=== PATIENT | female | born 1995 | race Caucasian/White ===

== ENCOUNTER → 2016-08-18 16:30 | Observation (INO) ==
--- NOTE | 2016-08-18 16:44 | OB/GYN Progress Note ---
Date of Encounter: 08/18/16 Time of Encounter: 16:41 - Assessment and Plan (1) 35 weeks gestation of Current Visit: Yes Status: Acute (2) Polyhydramnios affecting in third trimester Current Visit: Yes Status: Acute (3) Decreased movement during in third trimester, antepartum Current Visit: Yes Status: Acute Pt felt movement soon after placing on monitor for multiple movements, Reactive NST, Discharged to home, discussed when to return to triage or call provider. Pt and family verbalize understanding. Qualifiers: Fetus number: single or unspecified fetus Qualified Code(s): O36.8130 - Decreased movements, third trimester, not applicable or unspecified (4) NST (non-stress test) reactive Current Visit: Yes Status: Acute Baseline 135 Subjective - Subjective Interval history: Pt reports decreased movement today presents to triage for evaluation. Polyhydramnios RON 24 on last US this week and breech presentation. Pt states schedueld for C/S at [address] Mendoza. Denies contractions ,vaginal bleeding or leaking of fluid. No other complaints. Antepartum ROS: other (decreased movement ), no loss of fluid, no vaginal bleeding, no contractions Objective - Exam FHR: auscultation normal FHR comments: reactive NST baseline 135 Abdomen: Present: normal appearance, soft, gravid Uterus: Present: normal
== END | disposition home or self-care (01) ==
LOC: 1NENULAB

== ENCOUNTER → 2016-08-31 15:34 | Observation (INO) ==
[2016-08-31 13:59] LABS: Basophils % 0.3 %; Bilirubin,Urine Negative (Negative); Blood,Urine Negative (Negative); Clarity,Urine Turbid (Clear); Color,Urine Yellow (Yellow); Eosinophils # 0.2 K/mcL (0.0-0.6); Eosinophils % 1.4 %; Glucose,Urine (UA) Normal (Normal); Hemoglobin 12.8 g/dL (11.5-15.4); Ketones,Urine Negative (Negative); Leukocyte Esterase,Urine Large (Negative); Lymphocytes # 1.8 K/mcL (0.6-4.6); Lymphocytes % 14.4 %; Mean Corpuscular HGB Conc 33.7 g/dL (31.6-35.5); Mean Corpuscular Hemoglobin 29.6 pg (28.0-33.3); Mean Platelet Volume 11.6 fL (9.4-12.4); Monocytes % 7.8 %; Neutrophils # 9.1 K/mcL (1.6-8.9); Nitrite,Urine Negative (Negative); PH,Urine 6.5 pH Units (5.0-8.0); Platelet Count 229 K/mcL (140-400); Protein,Urine Trace mg/dL (Neg-Trace); Red Blood Count 4.32 M/mcL (3.82-4.97); Red Cell Distribution Width 13.5 % (11.5-14.5); Segmented Neutrophils % 73.1 %; Specific Gravity,Urine 1.021 (1.010-1.025); Urobilinogen,Urine Normal (Normal)
[2016-08-31 14:00] LABS: Bacteria,Urine Many per hpf (None-Few); RBC,Urine 0-3 per hpf (0-3); Squamous Epithelial Cell,Urine Many per lpf (None-Few); WBC,Urine TNTC per hpf (0-3)
[2016-08-31 14:06] LABS: Protein/Creatinine Ratio,Urine 0.19 mg/mg (0-0.20)
[2016-08-31 14:11] LABS: Alanine Aminotransferase 13 Units/L (0-55); Aspartate Amino Transferase 18 Units/L (5-34); BUN/Creatinine Ratio 15 (6-26); Blood Urea Nitrogen 9 mg/dL (7-20); Lactate Dehydrogenase 201 Units/L (159-327); Uric Acid 5.1 mg/dL (2.6-6.0); eGFR For African Americans > 60 (> 60); eGFR For Non-African Americans > 60 (> 60)
[2016-08-31 14:26] LABS: Hyaline Casts,Urine None Seen per lpf (None-Few)
--- NOTE | 2016-08-31 15:47 | OB/GYN Progress Note ---
Date of Encounter: 08/31/16 Time of Encounter: 15:44 - Assessment and Plan (1) 37 weeks gestation of Status: Acute (2) Cramping affecting , antepartum Status: Acute No cervical change on serial exams. Nitrazine negative. Discharged to home with labor precautions. Subjective - Subjective Interval history: Pt to triage for increased cramping and suspect ROM. Pt states her cramping started last night about 0300 and has slowly increased. Also noted an increase in vaginal discharge (thin white). Reports good movement, denies vaginal bleeding. Pt states she is also having a hard time sleeping due to carpal tunnel. Also complains of headache, denies visual changes or other abdominal pain Antepartum ROS: loss of fluid, movement normal, contractions, no vaginal bleeding Objective - Vital Signs Vital Signs: Intake and Output 08/30/16 08/31/16 08/31/16 23:59 07:59 15:59 Other: Weight 84 kg Patient Weight 08/31/16 23:59 Weight 84 kg - Exam FHR: auscultation normal FHR comments: Baseline 135 Auscultation: bilateral: normal Abdomen: Present: normal appearance, soft, gravid Uterus: Present: normal Cervical dilation: Fingertip/long - Labs Labs: Abnormal lab results WBC 12.5 K/mcL (4.3-11.1) H 08/31/16 13:43 Neutrophils # 9.1 K/mcL (1.6-8.9) H 08/31/16 13:43 Urine Clarity Turbid (Clear) A 08/31/16 13:43 Ur Leukocyte Esterase Large (Negative) H 08/31/16 13:43 Urine Microscopic WBC TNTC per hpf (0-3) H 08/31/16 13:43 Ur Squamous Epith Cells Many per lpf (None-Few) H 08/31/16 13:43 Urine Bacteria Many per hpf (None-Few) H 08/31/16 13:43 Urine Total Protein 18 mg/dL (1-14) H 08/31/16 13:43
== END | disposition home or self-care (01) ==
LOC: 1NENULAB
PROVIDERS: ADMIT Obstetrics & Gynecology; ATTEND Obstetrics & Gynecology

== ENCOUNTER → 2016-09-04 19:35 | Observation (INO) ==
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
== END | disposition home or self-care (01) ==
LOC: 1NENULAB

== ENCOUNTER → 2016-09-10 08:41 | Observation (INO) ==
[2016-09-10 08:32] VITALS: BP 119/88
--- NOTE | 2016-09-10 08:44 | OB/GYN Progress Note ---
Date of Encounter: 09/10/16 Time of Encounter: 08:40 - Assessment and Plan (1) 38 weeks gestation of Current Visit: Yes Status: Acute questionable rupture of membrane - nitrizine was negative Subjective - Subjective Principal diagnosis: ?rupture of membranes Interval history: Michael Gomez is a 21 yo at 38.3 weeks gestation here today for ?rupture of membranes. She woke up this morning with fluid between her legs. States the fluid was initially orange, then clear. Reports good movement. Denies contractions. She is scheduled for a with Dr. Mendoza on September 20 due to the baby being breech. Antepartum ROS: loss of fluid, movement normal, no vaginal bleeding, no contractions Objective - Vital Signs Vital Signs: Vital Signs Temp Pulse Resp BP 09/10/16 08:29 97.8 F 78 14 119/88 Intake and Output 09/09/16 09/10/16 09/10/16 23:59 07:59 15:59 Other: Weight 86.6 kg Patient Weight 09/10/16 23:59 Weight 86.6 kg - Exam FHR comments: FHT reassuring for gestational age Auscultation: bilateral: normal Abdomen: Present: normal appearance, soft, gravid
== END | disposition home or self-care (01) ==
LOC: 1NENULAB
PROVIDERS: ADMIT Student in an Organized Health Care Education/Training Program; ATTEND Student in an Organized Health Care Education/Training Program

== ENCOUNTER 2016-09-11 11:46 | Inpatient (IN) ==
[~2016-09-11 11:46] MED LIST: Famotidine 20 MG/2 ML VIAL IVP PRN; Metoclopramide 10 MG/2 ML VIAL IVP PRN; Naloxone 0.4 MG/ML INJ IVP PRN; Ondansetron 4 MG/2 ML VIAL IVP PRN
--- NOTE | 2016-09-11 11:49 | OB/GYN History & Physical ---
Date of Encounter: 09/11/16 Time of Encounter: 11:46 Assessment and Plan (1) Transverse lie of fetus Current visit: Yes Status: Acute Pt at 5cm, active labor, recommend urgent as per Dr. Payne Qualifiers: Fetus number: single or unspecified fetus Qualified Code(s): O32.2XX0 - Maternal care for transverse and oblique lie, not applicable or unspecified (2) 38 weeks gestation of Current visit: Yes Status: Acute History of Present Illness Chief complaint: Increased contractions HPI: Ms. Gomez is a 21 year old female , 38.6w GA, presents to labor and delivery for increased contractions since 01:00am this morning 09/11. Pt visited L&D yesterday and was evaluated for premature uterine contractions and possible rupture of membranes, nitrazine test negative. 09/10 vaginal exam demonstrated < 1cm dilation. US demonstrates position in transverse lie. Past Med Surg Social Fam HX - Past Medical History Medical history: no medical history Psychiatric history: no psych history - Social History Smoking Status: Never smoker Smokeless Tobacco Status: No Alcohol use: none Drug use: none - Family History Mother Adopted: No Living Status: Still Living Hx Family Cardiac Disorders: No Hx Family Respiratory Disorders: No Hx Family Cancer: No Hx Family GI Disorders: No Hx Family Genitourinary Disorders: No Hx Family Endocrine Disorder: No Hx Family Musculoskeletal Disorders: No Hx Family Neuromuscular Disorders: No Hx Family Neurologic Disorders: No Hx Family HEENT Disorders: No Hx Family Autoimmune Disorders: No Hx Family Reproductive Disorders: No Hx Family Psychosocial Disorders: No Hx Family Medical Disorders: No Obstetrical History - Pregnancies : 3 Medications and Allergies Vit/Iron Fumarate/FA [ Tablet] 1 each PO DAILY #30 tablet 02/20 [Rx] Ranitidine HCl 150 mg PO DAILY 09/04/16 [History] Allergies Amoxicillin Allergy (Verified 02/21/16 13:41) Rash Penicillins Allergy (Verified 02/21/16 13:41) Rash Review of System OB - Genitourinary Genitourinary: amenorrhea - Menstruation Menstruation: amenorrhea Exam - Cervix Dilation: 5 Results Result Diagrams: 09/11/16 11:49 All other labs normal. - VTE Reasons for not Prescribing Prophylaxis: Treatment not Indicated - Low risk for VTE
[2016-09-11] MEDS ORDERED: Ringers Solution, Lactated 0 ML ONE (11:50)
[2016-09-11 11:56] LABS: Basophils % 0.2 %; Eosinophils # 0.1 K/mcL (0.0-0.6); Eosinophils % 0.5 %; Hematocrit 38.7 % (35.3-44.9); Hemoglobin 12.9 g/dL (11.5-15.4); Immature Granulocytes % 1.7 % (0-4); Lymphocytes # 1.8 K/mcL (0.6-4.6); Lymphocytes % 13.3 %; Mean Corpuscular HGB Conc 33.3 g/dL (31.6-35.5); Mean Corpuscular Hemoglobin 29.4 pg (28.0-33.3); Mean Corpuscular Volume 88.2 fL (83.0-100.0); Mean Platelet Volume 11.3 fL (9.4-12.4); Monocytes % 7.2 %; Neutrophils # 10.7 K/mcL (1.6-8.9); Platelet Count 249 K/mcL (140-400); Red Blood Count 4.39 M/mcL (3.82-4.97); Red Cell Distribution Width 13.5 % (11.5-14.5); Segmented Neutrophils % 77.1 %
[2016-09-11] MEDS ORDERED: Ringers Solution, Lactated 1,000 ML IVC SCH (12:00)
[2016-09-11] MEDS ORDERED: Clindamycin 300 MG in D5% in Water 50 ML IVPB ONE (12:10)
[2016-09-11] MEDS ORDERED: EPHEDrine 50 MG/ML VIAL ONE (12:11)
[2016-09-11] MEDS ORDERED: *HR* Oxytocin 10 UNIT/ML VIAL IM ONE ×2 (12:12→18:14)
[2016-09-11] MEDS ORDERED: *HR* Morphine Sulfate/PF 5 MG/10 ML AMPUL ONE (12:13)
[2016-09-11] MEDS ORDERED: *HR* Propofol 200 MG/20 ML VIAL IVP ONE (12:20)
[2016-09-11] MEDS ORDERED: Clindamycin 900 MG/50 ML 900 MG/50 ML IV.SOLN IVPB ONE (12:31)
--- NOTE | 2016-09-11 12:33 | Anesthesia Evaluation PreOp ---
Date of Encounter: 09/11/16 Time of Encounter: 12:00 - Past History Planned Operation: urgent c section Cardiac History: HTN (preg induced) Pulmonary History: Denies Any Significant HX API PRODUCT MANAGER History: Denies Any Significant HX Other Medical History: GERD Anesthesia History: No Prior Anesthetic Complications (d and c x2, laparoscopy) : Yes Test: Positive Alcohol Use: none Drug use: none Medications and Allergies Vit/Iron Fumarate/FA [ Tablet] 1 each PO DAILY #30 tablet 02/20 [Rx] Ranitidine HCl 150 mg PO DAILY 09/04/16 [History] Allergies Amoxicillin Allergy (Verified 02/21/16 13:41) Rash Penicillins Allergy (Verified 02/21/16 13:41) Rash - Meds/Allergy Pre-op Review Medications Reviewed: Yes Allergies Reviewed: Yes Beta Blockers on Current Med List: No Anesthesia Results - Labs 09/11/16 11:49 Anesthesia Exam 3 Vital Signs Time 1200 BP 1576/98 Pulse 80 Resp O2 Sat Height: 64 Weight: 190 pounds NPO (# of Hours): 4 Pain Scale: 5 Pain Scale Used: Numeric (1 - 10) - HEENT Pupil (Motor): Pupils equal Mallampati: III Teeth: Normal Oral Opening: Less than or equal to 3 - API PRODUCT MANAGER LOC: Oriented API PRODUCT MANAGER Motor: Normal RUE, Normal LUE, Normal RLE, Normal LLE, Normal Face API PRODUCT MANAGER Sensory: Normal: RUE, LUE, RLE, LLE, Face - Cardiac Rhythm: Regular Murmur: None JVD: No Carotid Bruit: No - Pulmonary Breath Sounds: bilateral Clear Respiratory Effort: Symmetrical Anesthesia Assess/Plan ASA Score: 2 Modified [place]anna Scale for Level of Consciousness: Anixous, agitated or restless Anesthetic Plan: Regional Monitoring Plan: Standard Monitors Recovery Plan: PACU
[2016-09-11] MEDS ORDERED: *HR* HYDROmorphone (PF) 1 MG/ML SYRINGE IVP PRN ×2 (12:35→17:11)
[2016-09-11] MEDS ORDERED: *HR* FentaNYL (PF) 100 MCG/2 ML VIAL ONE (13:27)
[2016-09-11] MEDS ORDERED: Ibuprofen 600 MG TABLET PO PRN (14:16)
[2016-09-11] MEDS ORDERED: Metoclopramide 10 MG/2 ML VIAL IVP PRN ×2 (14:16→16:51)
[2016-09-11] MEDS ORDERED: Sennosides 8.6 MG TABLET PO PRN ×2 (14:16→16:51)
[2016-09-11] MEDS ORDERED: *HR* OxyCODONE/APAP 5/325 TABLET PO PRN (14:16)
[2016-09-11] MEDS ORDERED: Ondansetron 4 MG/2 ML VIAL IVP PRN ×2 (14:16→16:51)
[2016-09-11] MEDS ORDERED: Rho Immune Globulin 1,500 UNIT SYRINGE IM ONE ×2 (14:16→16:51)
[2016-09-11] MEDS ORDERED: Simethicone 80 MG TAB.CHEW PO PRN ×2 (14:16→16:51)
--- NOTE | 2016-09-11 14:24 | OB/GYN Procedure Note ---
<Kendell Alvarado - Last Filed: 09/11/16 14:27> Section - Date of procedure: 09/11/16 Preop diagnosis: other malpresentation (transverse lie in labor) Post-op diagnosis: same Procedure: primary low transverse Surgeon: Israel Payne Estimated blood loss (cc): 500 Circular Shear Operator: Kendell Alvarado Anesthesiologist: Subhash Jaramillo Anesthesia Type: Spinal section complications: none Disposition: PACU Specimens: Placenta - (s) A Delivery Date: 09/11/16 Delivery Time: 13:12 Presentation: transverse lie Gender: Female Viability: Viable Pounds: 5 Ounces: 15 at 1 minute: 7 at 5 minutes: 8 Shoulder Dystocia: not encountered Specimens collected: cord blood Placenta: complete extraction Cord: 3 umbilical vessels <Israel Payne - Last Filed: 09/12/16 08:29> Section - Procedure: primary low transverse (T incision) - Narrative Narrative: Patient was taken to the operating room. After satisfactory spinal anesthesia was achieved, examination was placed in supine position, Hartman catheter inserted , and prepped and draped in usual manner. Following the placement of the Hartman , the membranes spontaneously ruptured yielding clear fluid. After appropriate timeout, the abdomen was entered through standard Maylard incision. The Rober retractor was placed. The peritoneum overlying the lower uterine segment was incised in the U-shaped fashion. Uterine cavity was entered sharply extended laterally. head was to maternal right , back was presenting , and buttocks and legs were to maternal left. The incision was extended in a T- shaped to facilitate safe delivery of the fetus. The fetus was delivered from a breech presentation without difficulty. The umbilical cord was doubly clamped and cut and the infant was handed to nurse staff further evaluation. The placenta was removed and sent to pathology for analysis. Uterus closed with a 0 Monocryl in anatomic fashion in single layer. After assurance of hemostasis, the abdomen was closed standard fashion using 0 Vicryl on the fascia. John were used on the skin. Sterile dressing was applied. Patient did well was taken to recovery room satisfactory condition. Counts were correct.
[2016-09-11] MEDS ORDERED: Oxytocin 20 units/ LR 1000 mL 20 UNIT/1,000 ML BAG IVC SCH ×2 (14:30→17:00)
[2016-09-11] MEDS ORDERED: Acetaminophen 325 MG TABLET PO PRN (16:51)
[2016-09-11] MEDS ORDERED: *HR* Morphine 2 MG/ML SYRINGE IVP PRN (17:11)
[2016-09-11] MEDS ORDERED: Ringers Solution, Lactated 1,000 ML ONE ×2 (18:06→19:05)
[2016-09-11] MEDS: Ibuprofen 600 MG TABLET PO PRN (23:49)
[2016-09-12 05:38] LABS: Basophils % 0.2 %; Eosinophils # 0.1 K/mcL (0.0-0.6); Eosinophils % 0.7 %; Hematocrit 29.7 % (35.3-44.9); Immature Granulocytes % 2.1 % (0-4); Lymphocytes # 1.7 K/mcL (0.6-4.6); Lymphocytes % 13.6 %; Mean Corpuscular HGB Conc 32.7 g/dL (31.6-35.5); Mean Corpuscular Hemoglobin 29.5 pg (28.0-33.3); Mean Corpuscular Volume 90.3 fL (83.0-100.0); Mean Platelet Volume 11.3 fL (9.4-12.4); Monocytes # 1.2 K/mcL (0.0-1.3); Monocytes % 9.4 %; Neutrophils # 9.1 K/mcL (1.6-8.9); Platelet Count 187 K/mcL (140-400); Red Blood Count 3.29 M/mcL (3.82-4.97)
[2016-09-12 05:39] LABS: Hemoglobin 9.7 g/dL (11.5-15.4)
[2016-09-12] MEDS: Ibuprofen 600 MG TABLET PO PRN ×3 (08:34→21:29)
[2016-09-12] MEDS: Prenatal Vit/FA 1 EACH TABLET PO SCH (08:34)
[2016-09-12] MEDS: Famotidine 20 MG TABLET PO SCH (08:34)
--- NOTE | 2016-09-12 08:38 | OB/GYN Progress Note ---
Date of Encounter: 09/12/16 Time of Encounter: 08:36 - Assessment and Plan (1) Status post primary low transverse section Current Visit: Yes Status: Acute Continue routine postop/ care Subjective - Subjective Principal diagnosis: Postop/ day 1 Primary c/s for transverse lie Interval history: Patient up in bed doing well. Reports pain is well controlled. Patient tolerating regular diet. Patient is bottle feeding female. Patient reports: appetite normal, voiding normally, pain well controlled, ambulating normally [place]: doing well, bottle feeding Objective - Vital Signs Latest vital signs: Vital Signs Temp Pulse Resp BP Pulse Ox 09/12/16 07:45 98.3 F 86 16 123/74 97 09/12/16 04:00 98.1 F 97 18 108/68 99 09/11/16 23:40 98.6 F 95 16 131/80 99 09/11/16 19:20 98.8 F 97 14 123/83 98 09/11/16 18:15 98.5 F 88 16 130/87 98 09/11/16 17:15 98.0 F 88 16 126/84 98 09/11/16 16:45 97.5 F L 84 16 120/77 98 09/11/16 16:15 98.6 F 78 16 135/89 99 Intake and Output 09/11/16 09/12/16 09/12/16 23:59 07:59 15:59 Intake Total 360 / 360 680 / 680 Output Total 1425 / 1425 1100 / 1100 Balance -1065 / -1065 -420 / -420 Intake: Oral 360 / 360 680 / 680 Output: Catheter 1425 / 1425 1100 / 1100 Other: Weight 82.7 kg 80.739 kg Patient Weight 09/12/16 23:59 Weight 80.739 kg - Exam Lungs: bilateral: normal Chest: Normal S1, Normal S2 Extremities: Present: normal Abdomen: Present: normal appearance, soft, gravid Incision: Present: normal, dry, dressed (Krzysztof dressing) Fundal Height: 1 (U/1) - Labs Labs: Laboratory Results - last 24 hr 09/11/16 09/12/16 11:49 05:00 WBC 13.8 H 12.3 H RBC 4.39 3.29 L Hgb 12.9 9.7 L D Hct 38.7 29.7 L MCV 88.2 90.3 MCH 29.4 29.5 MCHC 33.3 32.7 RDW 13.5 14.0 Plt Count 249 187 MPV 11.3 11.3 Immature Gran % 1.7 2.1 Seg Neutrophils % 77.1 74.0 Lymphocytes % 13.3 13.6 Monocytes % 7.2 9.4 Eosinophils % 0.5 0.7 Basophils % 0.2 0.2 Neutrophils # 10.7 H 9.1 H Lymphocytes # 1.8 1.7 Monocytes # 1.0 1.2 Eosinophils # 0.1 0.1 Basophils # 0.0 0.0
[2016-09-12] MEDS ORDERED: Prenatal Vit/FA 1 EACH TABLET PO SCH ×2 (09:00)
[2016-09-12] MEDS ORDERED: Rho Immune Globulin 1,500 UNIT SYRINGE IM ONE (12:00)
[2016-09-12] MEDS: *HR* OxyCODONE/APAP 5/325 TABLET PO PRN (22:50)
[2016-09-13] MEDS: *HR* OxyCODONE/APAP 5/325 TABLET PO PRN ×2 (08:02→12:13)
[2016-09-13] MEDS: Famotidine 20 MG TABLET PO SCH (08:02)
[2016-09-13] MEDS: Prenatal Vit/FA 1 EACH TABLET PO SCH (08:03)
[2016-09-13 08:16] VITALS: BP 127/81
--- NOTE | 2016-09-13 10:29 | OB/GYN Progress Note ---
Date of Encounter: 09/13/16 Time of Encounter: 10:27 - Assessment and Plan (1) Status post primary low transverse section Current Visit: Yes Status: Acute Anticipate Discharge today 09/13/16, continue routine postop/ care (2) Transverse lie of fetus Current Visit: Yes Status: Resolved Pt at 5cm, active labor, recommend urgent as per Dr. Payne Qualifiers: Fetus number: single or unspecified fetus Qualified Code(s): O32.2XX0 - Maternal care for transverse and oblique lie, not applicable or unspecified (3) Anemia Current Visit: Yes Status: Acute Qualifiers: Anemia type: iron deficiency Iron deficiency anemia type: other iron deficiency Qualified Code(s): D50.8 - Other iron deficiency anemias Subjective - Subjective Principal diagnosis: S/P Primary Low Transverse Section Interval history: Patient ambulating, voiding, flatus, no fever currently. Reports mild dizziness , no headache, states she is doing well overall. Wound healing well. Crane doing well. Objective - Vital Signs Latest vital signs: Vital Signs Temp Pulse Resp BP Pulse Ox 09/13/16 08:15 98.1 F 104 16 127/81 100 09/12/16 22:40 99.6 F 110 16 131/87 98 09/12/16 21:25 100.6 F H 102 14 139/86 100 09/12/16 19:50 98.3 F 98 14 126/85 98 09/12/16 15:43 98.5 F 109 16 126/83 98 Intake and Output 09/12/16 09/13/16 09/13/16 23:59 07:59 15:59 Intake Total 1100 / 1100 200 / 200 450 / 450 Output Total 600 / 600 600 / 600 Balance 500 / 500 -400 / -400 450 / 450 Intake: Oral 800 / 800 450 / 450 Other 300 / 300 200 / 200 Output: Urine 600 / 600 600 / 600 Other: Meal Dinner Percent of Meal Consumed 100% Weight 80.5 kg Patient Weight 09/13/16 23:59 Weight 80.5 kg - Exam Lungs: bilateral: normal Chest: Normal S1, Normal S2 Extremities: Present: normal Abdomen: Present: normal appearance Incision: Present: normal, intact
--- NOTE | 2016-09-13 10:46 | Discharge Summary ---
Date of Encounter: 09/13/16 Time of Encounter: 10:45 - Discharge Diagnosis (1) Status post primary low transverse section Priority: Primary Status: Acute Comments: Pt meeting all post-op milestones. (2) Anemia Priority: Secondary Status: Acute Comments: Discharge with Iron Supplementation. Qualifiers: Anemia type: iron deficiency Iron deficiency anemia type: other iron deficiency Qualified Code(s): D50.8 - Other iron deficiency anemias - Discharge Medications Prescriptions: OxyCODONE/APAP 5/325 [Percocet 5/325 MG] 1 each PO Q4HR PRN #30 tab PRN Reason: Moderate pain 4-6 Ibuprofen [Motrin] 600 mg PO Q6HR PRN #60 tab PRN Reason: Cramping Docusate [Colace] 100 mg PO BID #60 Home Medications: Vit/Iron Fumarate/FA [ Tablet] 1 each PO DAILY #30 tablet 02/20 [Rx] Docusate [Colace] 100 mg PO BID #60 09/13/16 [Rx] Ferrous Sulfate 325 mg PO DAILY #30 tab 09/13/16 [Rx] Ibuprofen [Motrin] 600 mg PO Q6HR PRN #60 tab 09/13/16 [Rx] OxyCODONE/APAP 5/325 [Percocet 5/325 MG] 1 each PO Q4HR PRN #30 tab 09/13/16 [Rx ] Simethicone [Gas-X] 80 mg PO TID PRN 09/13/16 [Rx] Allergies/Adverse Reactions: Allergies Amoxicillin Allergy (Verified 02/21/16 13:41) Rash Penicillins Allergy (Verified 02/21/16 13:41) Rash Data Procedures and tests throughout hospitalization: Laboratory Tests 09/11/16 09/11/16 09/12/16 11:49 13:25 05:00 WBC 13.8 H 12.3 H RBC 4.39 3.29 L Hgb 12.9 9.7 L D Hct 38.7 29.7 L MCV 88.2 90.3 MCH 29.4 29.5 MCHC 33.3 32.7 RDW 13.5 14.0 Plt Count 249 187 MPV 11.3 11.3 Immature Gran % 1.7 2.1 Seg Neutrophils % 77.1 74.0 Lymphocytes % 13.3 13.6 Monocytes % 7.2 9.4 Eosinophils % 0.5 0.7 Basophils % 0.2 0.2 Neutrophils # 10.7 H 9.1 H Lymphocytes # 1.8 1.7 Monocytes # 1.0 1.2 Eosinophils # 0.1 0.1 Basophils # 0.0 0.0 Screen NEGATIVE Baby's Blood Type A RH POSITIVE Mother's Blood Type O RH NEGATIVE Rhogam Indicated YES Rhogam Req for Mother 1 Date of admission: 09/11/16 11:46 Primary care physician: PCP NONE Discharging clinician: Padmaja Lino Anticipated date of discharge: 09/13/16 - Patient Status Disposition: Home, Self-Care Condition: Good Functional capacity at discharge: independent ambulation Overall status at discharge: patient is progressing back to baseline - Discharge Instructions Instructions: Anemia (GEN) Follow Up With: NONE,PCP [Primary Care Provider] - Hamzah Mendoza MD [Partnered Physician] - - Diet and Activity Activity: increase activity as tolerated Diet: regular diet Hospital Course GROOMING SALON MANAGER Reason for admission: other ( delivery) Hospital course: - Date of procedure: 09/11/16 Preop diagnosis: other malpresentation (transverse lie in labor) Post-op diagnosis: same Procedure: primary low transverse Surgeon: Israel Payne Estimated blood loss (cc): 500 Inventory And Pricing Associate: Kendell Alvarado Anesthesiologist: Subhash Jaramillo Anesthesia Type: Spinal section complications: none Disposition: PACU Specimens: Placenta - (s) A Infant Delivery Date: 09/11/16 Delivery Time: 13:12 Presentation: transverse lie Gender: Female Viability: Viable Pounds: 5 Ounces: 15 at 1 minute: 7 at 5 minutes: 8 Shoulder Dystocia: not encountered Specimens collected: cord blood Placenta: complete extraction Cord: 3 umbilical vessels Time Attestation: Total time spent providing and/or coordinating discharge services: Exam - Constitutional Vitals: Temp Pulse Resp BP Pulse Ox 98.1 F 104 16 127/81 100 09/13/16 08:15 09/13/16 08:15 09/13/16 08:15 09/13/16 08:15 09/13/16 08:15 General appearance IM: A&O X 3 - Respiratory Respiratory exam: Present: CTAB - Cardiovascular Cardiovascular exam IM: Present: +S1, +S2 - GI/Abdominal Incision: normal, dry, intact - Uterine Tone: Firm - Extremities Exam Extremities exam IM: Present: normal inspection - Neurological Exam Neurological exam: CN II-XII intact - Psychiatric Additional comments: reports good mood - VTE Reasons for not Prescribing Prophylaxis: Treatment not Indicated - Low risk for VTE Documentation of Mechanical Device: Intermittent pneumatic compression device
[2016-09-13] MEDS: Ibuprofen 600 MG TABLET PO PRN (15:37)
== END 2016-09-13 18:36 | disposition home or self-care (01) | DRG 540 ==
LOC: 1NENULAB → 1NENUOBS 16:22
PROVIDERS: ADMIT Obstetrics & Gynecology; ATTEND Obstetrics & Gynecology